=== PATIENT | female | born 1990 ===

== ENCOUNTER 2017-03-07 23:20 | Outpatient (CLI) | payer MEDICAID ==
[2017-03-08] MEDS ORDERED: LACTATED RINGERS 1,000 ML ONE (00:11)
[2017-03-08] MEDS ORDERED: ZOFRAN IM ONE (00:42)
[2017-03-08] MEDS ORDERED: LACTATED RINGERS 1,000 ML IV SCH (01:00)
[2017-03-08] MEDS ORDERED: ZOFRAN IV ONE (01:11)
== END 2017-03-08 01:15 | disposition home or self-care (01) ==
LOC: TRG 23:20
PROVIDERS: ATTEND Obstetrics & Gynecology
DX: O26.893 Other specified pregnancy related conditions, third trimester (principal); R42 Dizziness and giddiness; Z3A.37 37 weeks gestation of pregnancy
CPT/HCPCS: 96360; J2405; J7120

== ENCOUNTER 2017-03-18 19:01 | Inpatient (IN) | payer MEDICAID ==
[2017-03-18] MEDS ORDERED: TYLENOL PO ONE (21:02)
[2017-03-18 21:56] LABS: Basophils % (Auto) 0.2 % (0.0-1.8); Eosinophils % (Auto) 1.1 % (0.0-4.3); Hematocrit 31.7 % (30.3-42.9); Hemoglobin 10.3 gm/dl (10.1-14.3); Mean Corpuscular HGB Conc 33 % (30-34); Mean Corpuscular Volume 80 fl (79-97); Platelet Count 192 K/mm3 (140-440); Red Blood Count 3.98 M/mm3 (3.65-5.03); Red Cell Distribution Width 14.3 % (13.2-15.2); White Blood Count 9.7 K/mm3 (4.5-11.0)
[2017-03-18 22:02] LABS: Mean Corpuscular Hemoglobin 26 pg (28-32)
[2017-03-18 22:08] LABS: Alanine Aminotransferase 9 units/L (7-56); Albumin 3.5 g/dL (3.9-5); Alkaline Phosphatase 128 units/L (35-129); Anion Gap 18 mmol/L; Blood Urea Nitrogen 11 mg/dL (7-17); Calcium 8.9 mg/dL (8.4-10.2); Carbon Dioxide 20 mmol/L (22-30); Chloride 102.8 mmol/L (98-107); Glucose 74 mg/dL (65-100); Potassium 3.8 mmol/L (3.6-5.0); Sodium 137 mmol/L (137-145); Total Protein 7.1 g/dL (6.3-8.2)
[2017-03-18 22:24] LABS: Bilirubin,Urine NEG (Negative); Blood,Urine NEG (Negative); Ketones,Urine TR mg/dL (Negative); Leukocyte Esterase,Urine TR (Negative); Nitrite,Urine NEG (Negative); Protein,Urine <15 mg/dL mg/dL (Negative)
[2017-03-19] MEDS ORDERED: BRETHINE IVP PRN (01:12)
[2017-03-19] MEDS ORDERED: ePHEDrine SULFATE IV PRN ×2 (01:12→02:58)
[2017-03-19] MEDS ORDERED: BRETHINE SUB-Q PRN (01:12)
[2017-03-19] MEDS ORDERED: STADOL IV PRN (01:12)
[2017-03-19] MEDS ORDERED: STADOL ONE (01:14)
[2017-03-19] MEDS ORDERED: VALTREX PO SCH (01:30)
--- NOTE | 2017-03-19 01:32 | History and Physical Report ---
History of Present Illness Date of examination: 03/19/17 (Attending provider: Dr. Collier) Date of admission: 03/19/17 Chief complaint: Labor History of present illness: 26 year old presents to triage with complaint of headache which resolved with Tylenol. Patient also reports contractions on and off for several days. Patient reports active movement. She denies leaking of fluid or vaginal bleeding. 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 denies: smoking, alcohol abuse - Obstetrical History Expected Date of Delivery: 03/28/17 Actual Gestation: 38 Week(s) 5 Day(s) : 4 Para: 3 Hx # Term Pregnancies: 3 Number of Pregnancies: 1 Spontaneous Abortions: 0 Induced : 0 Number of Living Children: 3 Medications and Allergies Allergies Allergy/AdvReac Type Severity Reaction Status Date / Time No Known Allergies Allergy Verified 03/08/17 00:09 Active Meds: Active Medications Butorphanol Tartrate (Stadol) 2 mg IV Q2H PRN PRN Reason: Pain , Severe (7-10) Lactated Ringer's (Lactated Ringers) 1,000 mls @ 125 mls/hr IV DIRECT CONSUELO Oxytocin/Sodium Chloride (Pitocin/Ns 20 Unit/1000ml Drip) 20 units in 1,000 mls @ 125 mls/hr IV DIRECT CONSUELO Valacyclovir HCl (Valtrex) 500 mg PO BID CONSUELO Review of Systems All systems: negative (contractions, labor) - Vital Signs Vital signs: Vital Signs Pulse BP 81 112/62 03/18/17 19:30 03/18/17 19:30 Temp Pulse Resp BP Pulse Ox 73 145/84 03/18/17 21:42 03/18/17 21:42 - Physical Exam Breasts: Positive: deferred Abdomen: Positive: normal appearance. Negative: soft, distention, tenderness Genitourinary (Female): Positive: normal external genitalia, normal perenium. Negative: perineal/vulvar lesions (no lesions seen on careful exam with bright light upon admission) Vagina: Positive: normal moisture Uterus: Positive: enlarged. Negative: nodular Anus/Rectum: Positive: normal perianal skin. Negative: hemorrhoids Extremities: Positive: normal. Negative: tenderness, edema - Obstetrical FHR: category 2 FHR comments: FHR normal baseline rate and moderate variability and accelerations. Occasional brief variable FHR deceleration with rapid return to baseline. Uterine Contraction Monitor Mode: External Cervical Dilatation: 6 Cervical Effacement Percentage: 90 station: -1 Uterine Contraction Pattern: Regular Results Result Diagrams: 03/18/17 21:00 03/18/17 21:00 Abnormal lab results 03/18/17 03/18/17 Range/Units 21:00 21:00 MCH 26 L (28-32) pg [place] % (Auto) 8.1 H (0.0-7.3) % Carbon Dioxide 20 L (22-30) mmol/L Creatinine 0.5 L (0.7-1.2) mg/dL Albumin 3.5 L (3.9-5) g/dL All other labs normal. Assessment and Plan A: at 38 weeks, 5 days gestation. Active labor. GBS negative. Mildly elevated blood pressures; preeclamptic labs negative. Headache, resolved with Tylenol. P: Admit patient for labor. Close BP monitoring. Epidural if desired. Anticipate .
[2017-03-19] MEDS ORDERED: LACTATED RINGERS 1,000 ML IV SCH (02:00)
[2017-03-19] MEDS ORDERED: NARCAN 2 MG/2 ML IV PRN (02:58)
--- NOTE | 2017-03-19 02:58 | Anesthesia Consultation ---
Anesthesia Consult and Med Hx Date of service: 03/19/17 - Airway Anesthetic Teeth Evaluation: Good ROM Head & Neck: Adequate Mental/Hyoid Distance: Adequate Intubation Access Assessment: Probably Good - Pre-Operative Health Status ASA Pre-Surgery Classification: ASA2, Emergency Proposed Anesthetic Plan: Epidural, Spinal - Pulmonary Hx Asthma: No COPD: No Hx Pneumonia: No - Cardiovascular System Hx Hypertension: No - Central Nervous System Hx Seizures: No Hx Psychiatric Problems: No - Endocrine Hx Renal Disease: No Hx End Stage Renal Disease: No Hx Hypothyroidism: No Hx Hyperthyroidism: No - Hematic Hx Anemia: No Hx Sickle Cell Disease: No - Other Systems Hx Alcohol Use: No
[2017-03-19] MEDS ORDERED: fentaNYL-BUPIV 2 MCG/ML-0.125% 200 MCG/100 ML BAG EPIDURAL SCH (03:00)
[2017-03-19] MEDS: PITOCin/NS 20 UNIT/1000ML DRIP 20 UNITS/1,000 ML BAG IV SCH ×2 (04:45→06:30)
[2017-03-19] MEDS ORDERED: TUCKS PAD TP PRN (05:38)
[2017-03-19] MEDS ORDERED: NORCO 5/325 PO PRN (05:38)
[2017-03-19] MEDS ORDERED: LANSINOH TP PRN (05:38)
--- NOTE | 2017-03-19 05:52 | Procedure Note ---
OB Delivery Note - Vaginal Delivery presentation: vertex Delivery position: OA Intrapartum events: none Delivery induction: none Delivery monitor: external FHT, external uterine Route of delivery: Delivery placenta: spontaneous Delivery cord: 3 umbilical vessels Episiotomy: none Delivery laceration: none Anesthesia: epidural Delivery comments: Spontaneous vaginal delivery of liveborn male weighing 7 lbs. 15 oz. with apgars of 8/9. Nuchal cord, shoulder cord, body cord, manually reduced after delivery. Spontaneous cry and respirations. Baby placed immediately on mother's chest after . 3 vessel cord double clamped and cut after cessation of pulsation. Spontaneous delivery of intact placenta and membranes by David mechanism. EBL 250 ml. Fundus firm and midline. Pitocin to IV fluids after delivery of placenta. No lacerations noted. Sponge count correct. Mother and baby stable in birthing room.
[2017-03-19] MEDS ORDERED: SODIUM CHLORIDE FLUSH SYRINGE 10 ML IV PRN (06:00)
[2017-03-19] MEDS: MOTRIN PO SCH ×2 (12:28→17:35)
--- NOTE | 2017-03-19 12:58 | Ultrasound Report ---
BIOPHYSICAL PROFILE: 03/18/17 19:01:00 CLINICAL: [facility] FINDINGS: The biophysical profile was scored as followin - breathing movements 2 - movements 2 - posture and tone 2 - Qualitative amniotic fluid volume 8 - TOTAL SCORE OF POSSIBLE 8 Heart Rate (bpm) = 128 IMPRESSION: Normal study
--- NOTE | 2017-03-19 13:00 | Ultrasound Report ---
OB ULTRASOUND LIMITED: 03/18/17 CLINICAL: Check amniotic fluid volume. FINDINGS: Gestation: Alas Position: Cephalic. Amniotic Fluid: Normal DADA = 9.0 cm Placenta: Fundal Placental Grade: II Heart Rate: 128 BPM IMPRESSION: Single live intrauterine fetus at 38based on clinical dating. Normal amniotic fluid volume.
[2017-03-20] MEDS: MOTRIN PO SCH ×2 (01:18→12:29)
[2017-03-20 05:28] LABS: Hematocrit 27.1 % (30.3-42.9); Hemoglobin 9.1 gm/dl (10.1-14.3)
[2017-03-20] MEDS ORDERED: BOOSTRIX IM ONE (06:00)
--- NOTE | 2017-03-20 11:45 | Progress Note ---
Assessment and Plan A: day 1 S/P spontaneous vaginal delivery. Anemia. P: Supplement with iron. Discharge patient home tomorrow AM. Discharge instructions and warning signs discussed. Patient is to follow up with [facility] in 6 weeks. Subjective - Subjective Date of service: 03/20/17 Principal diagnosis: day 1 S/P spontaneous vaginal delivery Interval history: day 1 S/P spontaneous vaginal delivery. Patient is doing well. . Voiding without difficulty and ambulating well. Eating a regular diet. Patient denies headache, cough, chest pain, shortness of breath, abdominal pain, nausea or vomiting, heavy vaginal bleeding, foul smelling discharge, leg pain, or symptoms of depression. Patient reports: appetite normal, voiding normally, pain well controlled, ambulating normally Liz[place]ores: doing well Objective - Vital Signs Latest vital signs: Vital Signs Temp Pulse Resp BP Pulse Ox 03/20/17 08:25 97.9 F 87 20 117/76 03/20/17 00:50 97.9 F 68 20 116/72 03/19/17 17:22 97.6 F 83 18 124/75 98 03/19/17 12:28 18 03/19/17 11:57 98.6 F 80 18 122/84 95 Intake and Output 03/19/17 03/20/17 03/20/17 22:59 06:59 14:59 Intake Total 600 240 240 Output Total 650 Balance -50 240 240 Intake: Oral 480 240 240 Intake, Free Water 120 Output: Urine 650 Void 650 Other: Total, Intake Amount 240 240 240 Total, Output Amount 400 # Voids Void 1 1 - Exam Breasts: Present: deferred Cardiovascular: Present: Regular rate, No murmurs Lungs: Present: Clear to auscultation Abdomen: Present: normal appearance, soft. Absent: tenderness, rigidity Uterus: Present: normal, firm, fundal height below umbilicus Extremities: Present: normal. Absent: edema - Labs Labs: Abnormal lab results 03/20/17 Range/Units 05:15 Hgb 9.1 L (10.1-14.3) gm/dl Hct 27.1 L (30.3-42.9) %
--- NOTE | 2017-03-20 11:52 | Discharge Summary ---
Providers - Providers Date of Admission: 03/19/17 01:40 Date of discharge: 03/20/17 Attending physician: Dr. Adam Collier None Primary care physician: JIE RUFF MD Hospitalization Reason for admission: active labor Delivery: Episiotomy: none Laceration: none Other procedures: none complications: none Discharge diagnosis: IUP at term delivered baby: male Pertinent studies: Labs Hospital course: Normal hospital course Condition at discharge: Good Disposition: DC-01 TO HOME OR SELFCARE Plan - Provider Discharge Summary Activity: routine, no sex for 6 weeks, no heavy lifting 4 weeks, no strenuous exercise Diet: routine Instructions: routine Additional instructions: Call your doctor immediately for: * Fever > 100.5 * Heavy vaginal bleeding ( >1 pad per hour) * Severe persistent headache * Shortness of breath * Reddened, hot, painful area to leg or breast - Follow up plan Follow up: JIE RUFF MD [Primary Care Provider] - 6 Weeks
[2017-03-20 18:37] VITALS: BP 114/72
== END 2017-03-20 16:20 | disposition home or self-care (01) | DRG 774 ==
LOC: TRG 19:01 → LD 03-19 01:40 → OB 03-19 06:36
PROVIDERS: ADMIT Obstetrics & Gynecology; ATTEND Obstetrics & Gynecology
PROC: 10E0XZZ Delivery of Products of Conception, External Approach (ICD-10-PCS; principal; 2017-03-19)
PROC: 3E0S3BZ Introduction of Anesthetic Agent into Epidural Space, Percutaneous Approach (ICD-10-PCS; 2017-03-19)
PROC: 00HU33Z Insertion of Infusion Device into Spinal Canal, Percutaneous Approach (ICD-10-PCS; 2017-03-19)
DX: O99.214 Obesity complicating childbirth (principal); O98.52 Other viral diseases complicating childbirth; E66.9 Obesity, unspecified; O69.1XX0 Labor and delivery complicated by cord around neck, with compression, not applicable or unspecified; R51 Headache; O99.354 Diseases of the nervous system complicating childbirth; O99.03 Anemia complicating the puerperium; D64.9 Anemia, unspecified; Z68.39 Body mass index [BMI] 39.0-39.9, adult; Z37.0 Single live birth; Z3A.38 38 weeks gestation of pregnancy; B00.9 Herpesviral infection, unspecified; Z79.899 Other long term (current) drug therapy
CPT/HCPCS: 36415; 76815; 76819; 80053; 81003; 85014; 85018; 85025; 86850; 86900; 86901; 90471; 90715; A6250; J0595; J2590; J7120